=== PATIENT | male | born 1965 | race Caucasian/White ===

== ENCOUNTER 2019-05-13 22:30 | Emergency (ER) | payer BC ==
[~2019-05-13] VITALS: Ht 180.3 cm; Wt 86.2 kg
[2019-05-13 22:34] VITALS: BP_SYST 151
--- NOTE | 2019-05-13 22:38 | NUR ---
Placed in room 07 . Placed on manager cardiac cath, blood pressure machine and pulse oximeter. To gown for exam. Side rails up. Report given to Braden MÉNDEZ.
--- NOTE | 2019-05-13 22:50 | NUR ---
AWAKE, ALERT. STATES THAT HE TOOK HIS AM INSULIN NOVOLOG 25 UNITS AT [facility], AND BLOOD SUGAR WENT DOWN.
--- NOTE | 2019-05-13 22:53 | NUR ---
ER at bedside examining patient.
[2019-05-13] MEDS ORDERED: NACL 0.9% 1,000 ML IV ONE (23:00)
[2019-05-13] MEDS ORDERED: DEXTROSE 10%-WATER 500 ML IV SCH (23:00)
[2019-05-14 01:29] LABS: CALCIUM 8.4 mg/dL (8.4-11.0); CREATININE 0.95 mg/dL (0.55-1.30); POTASSIUM 3.7 mmol/L (3.5-5.1)
[2019-05-14 02:00] VITALS: BP_SYST 145
--- NOTE | 2019-05-14 02:00 | NUR ---
Patient given written and verbal discharge instructions and verbalizes understanding. ER MD Green discussed with patient the results and treatment provided. Patient in stable condition. ID arm band removed. IV catheter removed intact and dressing applied, no active bleeding. No Rx given. Patient educated on pain management and to follow up with PMD. Pain Scale 0. Opportunity for questions provided and answered. Medication side effect fact sheet provided.
== END 2019-05-14 02:00 | disposition home or self-care (01) ==
LOC: SED 22:30
DX: T38.3X1A Poisoning by insulin and oral hypoglycemic [antidiabetic] drugs, accidental (unintentional), initial encounter (principal); I10 Essential (primary) hypertension; E11.9 Type 2 diabetes mellitus without complications; Y92.89 Other specified places as the place of occurrence of the external cause
CPT/HCPCS: 36415; 80048; 99283